=== PATIENT | male | born 1945 | race Caucasian/White ===

== ENCOUNTER 2021-07-11 07:47 | Day surgery (SDC) | payer MEDICARE, OTHER, SELFPAY ==
--- NOTE | 2021-07-10 10:37 | HO.ANESPROP2 ---
Documented by User: Leilani Li NP 07/10/21 10:37 HPI - Anesthesia Eval Consult details Narrative: 76yo M for Upper Endoscopy with Balloon Dilitation [facility] Past Medical History Medical History (Updated 07/11/21 @ 09:39 by Peyton Thompson MD) CKD (chronic kidney disease) Dysphagia Elevated cholesterol HTN (hypertension) Surgical History Surgical History History of esophagogastroduodenoscopy (EGD) Hx of colonoscopy Social History Social History Patient Tobacco Use Status: Former Tobacco user Use of substances other than those prescribed or required for medical reasons: No Are you DNR?: No Advance Directives: No Advance Directives Information Provided: Yes Recently lost weight without trying: No Nutrition Risks: No Nutritional Risk Meds Allergies Allergy/AdvReac Type Severity Reaction Status Date / Time Penicillins Allergy Unknown Verified 07/05/21 14:06 Home Medications Medication Instructions Recorded Confirmed Last Taken Type Probiotic 07/05/21 Unknown History ascorbic acid (vitamin C) 500 mg 500 mg PO DAILY 07/05/21 07/05/21 Unknown History capsule,extended release (Vitamin C) aspirin 81 mg tablet,delayed 81 mg PO DAILY 07/05/21 07/05/21 Unknown History release atorvastatin 20 mg tablet 1 tab PO DAILY 07/05/21 07/05/21 Unknown History famotidine 20 mg tablet 1 tab PO BID 07/05/21 07/05/21 Unknown History lisinopril 2.5 mg tablet 1 tab PO DAILY 07/05/21 07/05/21 Unknown History Exam Exam Date and Time: July 10, 2021 1037 Assessment and Plan Assessment Anesthesia Assessment: Chart Reviewed Documented by User: Peyton Thompson MD 07/11/21 09:41 [facility] Past Medical History Medical History (Updated 07/11/21 @ 09:39 by Peyton Thompson MD) CKD (chronic kidney disease) Dysphagia Elevated cholesterol HTN (hypertension) Family History Family history of problems with anesthesia: No Surgical History Surgical History History of esophagogastroduodenoscopy (EGD) Hx of colonoscopy History of Problems with Anesthesia: No Social History Social History Patient Tobacco Use Status: Former Tobacco user Use of substances other than those prescribed or required for medical reasons: No Are you DNR?: No Advance Directives: No Advance Directives Information Provided: Yes Recently lost weight without trying: No Nutrition Risks: No Nutritional Risk Meds Allergies Allergy/AdvReac Type Severity Reaction Status Date / Time Penicillins Allergy Unknown Verified 07/05/21 14:06 Home Medications Medication Instructions Recorded Confirmed Last Taken Type Probiotic 07/05/21 Unknown History ascorbic acid (vitamin C) 500 mg 500 mg PO DAILY 07/05/21 07/05/21 Unknown History capsule,extended release (Vitamin C) aspirin 81 mg tablet,delayed 81 mg PO DAILY 07/05/21 07/05/21 Unknown History release atorvastatin 20 mg tablet 1 tab PO DAILY 07/05/21 07/05/21 Unknown History famotidine 20 mg tablet 1 tab PO BID 07/05/21 07/05/21 Unknown History lisinopril 2.5 mg tablet 1 tab PO DAILY 07/05/21 07/05/21 Unknown History Exam Height,Weight and Vital Signs: Height 5 ft 8 in Weight 74.843 kg Vital Signs Temp Pulse Resp BP Pulse Ox 97.1 F 58 16 121/70 97 07/11/21 08:00 07/11/21 08:00 07/11/21 08:00 07/11/21 08:00 07/11/21 08:00 Airway Mallampati Class: II TM Dist: >3cm Neck ROM: Full Partial: Upper Loose/Missing/Broken Teeth: Yes (Many missing bottom) Heart: RRR Lungs: CTAB Assessment and Plan Assessment Anesthesia Assessment: Anesthesia Plan Discussed Final Anesthetic Review Family History of Problems with Anesthesia: No History of Problems with Anesthesia: No NPO: Yes ASA Class: III Final Preanesthetic Review: No Changes in Pt Med Stat, Meds/Allgs Chart Reviewed, Consent Obtained/Reviewed and Anes Risks/Benef Reviewed Patient Risk: Low Procedure Risk: Low Assessment/Block/Sedation in SS: Assess/Block/Sedation-SS Anesthetic Plan Anesthetic Plan: MAC: Disposition: Standard PACU
[2021-07-11 07:58] VITALS: BMI 25.0
[2021-07-11 08:00] VITALS: BP 121/70; PULSE 58; RESP 16; TEMP 36.2; O2SAT 97
[2021-07-11] MEDS: Lactated Ringers 1,000 ML 100 ML IVCONT (08:15)
--- NOTE | 2021-07-11 09:36 | PM.OP ---
Brief Operative Note Date of Service: 07/11/21 Pre-op diagnosis: dysphagia, schatzki ring Post-op diagnosis: same Procedure: egd Surgeon: Mumtaz Chisholm Anesthesia: MAC Was an Senior Animator used for this Procedure?: No Estimated blood loss (mL): 5 Pathology: other (bxs egj) Condition: stable Disposition: PACU
[2021-07-11 09:40] VITALS: BP 91/49; PULSE 54; RESP 24; TEMP 36; O2SAT 95
--- NOTE | 2021-07-11 09:49 | MHC.SHP ---
Pre-Procedural Eval Section A Date of Service: 07/11/21 Section B Chief Complaint: dysphagia,reflux disease Details of Present Illness: see h and p no changes Relevant Family History (Specify if Yes): No Relevant Social History: None Present Medications: see Short Stay Collaborative assessment Medical History: No relevant PMH Allergies: Allergies Allergy/AdvReac Type Severity Reaction Status Date / Time Penicillins Allergy Unknown Verified 07/05/21 14:06 Review of Systems Sugical H&P ROS: Negative: Constitution, Cardiovascular, Respiratory, Neurological, Psychiatric, Hem-Onc, Allergic/Immunologic, Gastrointestinal, Genitourinary, Musculoskeletal, Integumentary, Endocrine and Eyes/Ears/Nose/Throat Exam Surgical H&P Exam: Normal: HEENT, Normal: Heart, Normal: Lungs, Normal: Extremities, Normal: Abdomen, Normal: Skin and Normal: Neurological Plan Diagnosis/Plan: Unchanged I have reviewed the history and physical and performed a pertinent physical examination on my patient. No changes have occurred unless specified.
[2021-07-11 09:54] VITALS: BP 99/66; PULSE 50; RESP 20; TEMP 36.3; O2SAT 97
--- NOTE | 2021-07-11 21:02 | OP_ITS ---
SURGEON: Mumtaz Chisholm MD INDICATIONS: Dysphagia and history of Schatzki ring. PREOPERATIVE DIAGNOSIS: POSTOPERATIVE DIAGNOSIS: PROCEDURE PERFORMED: ESTIMATED BLOOD LOSS: COMPLICATIONS: ANESTHESIA: ASSISTANTS: SPECIMENS: PROCEDURES: Upper endoscopy with balloon dilation and biopsy. MEDICATIONS: Monitored anesthesia care. PROCEDURE DESCRIPTION: The history and physical were performed. The risks and benefits of the procedure were explained to the patient. Informed consent was obtained. The patient was placed in the left lateral decubitus position. The Olympus video gastroscope was introduced into the esophagus, stomach, and duodenum. Examination was performed and the scope was removed. He tolerated the procedure well and was taken to recovery area in stable condition. FINDINGS: Esophagus: There was a nonobstructive Schatzki ring. The scope easily passed through this. There was some mild associated esophagitis. Stomach: The stomach was normal. Duodenum: The bulb and second portion were normal. Balloon dilation of the Schatzki ring was performed to 18 and 19 mm with a through the scope balloon, inflated to its recommended pressures for 60 seconds and then removed. The ring was widely patent at the termination of the procedure. Biopsies were obtained from the EG junction. IMPRESSION: 1. Schatzki ring. 2. Esophagitis. 3. Dysphagia. RECOMMENDATIONS: Follow up the biopsy results. MD MAGED Shrestha/HELENA / [id number]
== END 2021-07-11 10:24 | disposition home or self-care (01) ==
PROVIDERS: PCP Internal Medicine; Visit Provider Internal Medicine Gastroenterology
PROC: (CPT 43249; principal; 2021-07-11 09:00)
DX: K22.2 Esophageal obstruction (principal); K20.80 Other esophagitis without bleeding; K21.9 Gastro-esophageal reflux disease without esophagitis; I12.9 Hypertensive chronic kidney disease with stage 1 through stage 4 chronic kidney disease, or unspecified chronic kidney disease; N18.9 Chronic kidney disease, unspecified; E78.00 Pure hypercholesterolemia, unspecified; Z79.82 Long term (current) use of aspirin; Z79.899 Other long term (current) drug therapy; Z88.0 Allergy status to penicillin; Z87.891 Personal history of nicotine dependence
CPT/HCPCS: 43249; 43239; 88305; C1726

== ENCOUNTER 2024-07-14 08:57 | Day surgery (SDC) | payer MEDICARE, OTHER, SELFPAY ==
--- OUTSIDE RECORDS SUMMARY | 2024-07-01 16:18 | XMS_ITS | Encounter Summary ---
Author Organization [facility] Address [address] [facility] [address] [place] [address] Phone Care Team Providers Care Basket Hand Braider Name Role Phone Unavailable Primary Care Provider Unavailabl e Reason for Visit * Reason Comments Med Refill Encounter Details Date Type Department Care Team (Late st Contact Info) Description 12/11/2023 Refill [facility] [address] [place] [address] [place] [address] Ross Bauer MD [address] [facility] [address] [place] [phone] Chronic kidney disease stage 3 (HCC) Social History Tobacco Use Types Packs/Day Years Used Date Smoking Tobacco: Never Assessed Sex and Gender Information Value Date Recorded Sex Assigned at Not on file Legal Sex Male 4:50 PM EST Gender Identity Not on file Sexual Orientation Not on file documented as of this encounter Plan of Treatment Not on file documented as of this encounter Visit Diagnoses Diagnosis Chronic kidney disease stage 3 (HCC) documented in this encounter
--- OUTSIDE RECORDS SUMMARY | 2024-07-01 16:18 | XMS_ITS ---
Author Organization [facility] Address [address] [place] [phone] Care Team Providers Care Five Roll Refiner Batch Mixer Name Role Phone David Puga Primary Care Provider Mumtaz Guzman Jr Unavailable Allergies Allergen (clinical drug ingredient) Drug/Non Drug Allergy documented on EMR Reaction Allergy Type Onset Date Status Penicillin Unknown Drug Allergy Active REASON FOR VISIT Patient presents today for dysphagia Medications Medication SIG (Take, Route, Frequency, Duration) Notes Start Date End Date Status Lisinopril 5 MG TAKE 1 TABLET BY REYMUNDO TH 1 TIME EACH DAY. Orally Once a day Active Atorvastatin Calcium 20 MG TAKE 1 TABLET BY MOUTH EVERY DAY Oral for 90 Active Aspir-81 Active Social History Tobacco Use: Social History Observation Description Date Details (start date - stop date) Former Smoker NA - NA Tobacco Use/Smoking Question Answer Notes Patient is a former smoker How long has it been since you last smoked? > 10 years Alcohol Screen Question Answer Notes Did you have a drink contain ing alcohol in the past year? Yes How often did you have a dri nk containing alcohol in the past year? 4 or more times a week (4 points) How many drinks did you have on a typical day when you were drinking in the past year? 1 or 2 drinks (0 point) How often did you have 6 or more drinks on one occasion in the past year? Never (0 point) Points 4 Interpretation Positive Section Notes: tobacco use over 45 years ag o Problems Problem Type SNOMED Code ICD Code Onset Dates Problem Status W/U Status Risk Notes Problem Schatzki's ring (47007748) Schatzki's ring (K22.2) Active confirmed Vital Signs Temperature 97.7 degrees Fahrenheit 07/02/19 25 Blood pressure systolic 001 mm Hg 07/02/19 25 Blood pressure diastolic 01 mm Hg 025 Height 67 in 07/01/2024 Weight 172 lbs 07/01/2024 BMI 26.94 kg/m2 07/01/2024 Encounters Encounter Location Date Provider Diagnosis [facility] [address] [place] [address] 07/01/2024 Mumtaz Chisholm Jr Dysphagia R13.10 and Schatzki's ring K22.2 Assessments Encounter Date Diagnosis (ICD Code) Assessment Notes Treatment Notes Treatment Clinical Notes Section Notes 07/01/2024 Dysphagia (ICD-10 - R13.10) 07/01/2024 Schatzki's ring (ICD-10 - K22.2) Plan Of Treatment Future Test Test Name Order Date UPPER GI ENDOSCOPY BALLOOON DILATION OF ESOPH 07/01/2024 Next Appt Details Provider Name:Mumtaz jurado Jr, 07/14/2024 11:50:00 AM, [address] [place] [address] , [place], [place], [phone], Progress Notes * GURVINDER BROWN DDOB:1945 (79 yo M)Acc No.[id number]:07/01/2024 Progress Notes Patient:?GURVINDER BROWN Provider:?Mumtaz Chisholm MD :1945???Age:79 Y???Sex:Male Nathen e:07/01/2024 Address:[address] [place] [address] Pcp:David Puga Subjective: * Chief Complaints: * ???1. Patient presents today for dysphagia. * Medical History:?Chronic kid taye disease, Hypertension, Elevated cholesterol, Colonoscopy 09/22 normal. * Family History:?Father: dece ased, gerd.?Mother: .? no known hx of colon cancer polyps or IBS cousin esophageal cancer.? No family history of liver cancer. * Social History:?Tobacco Use:?Tobacco Use/Smoking?Patient is a?former smoker,?How long has it been since you last smoked??> 10 years.?Drugs/Alcohol:?Alcohol Screen?Did you have a drink containing alcohol in the past year??Yes,?How often did you have a drink containing alcohol in the past year??4 or more times a week (4 points),?How many drinks did you have on a typical day when you were drinking in the past year??1 or 2 drinks (0 point),?How often did you have 6 or more drinks on one occasion in the past year??Never (0 point),?Points?4,?Interpretation?Positive.?Miscellaneous:?Marital status: . Occupation: retired. ???tobacco use over 45 years ago. * Medications:?Taking Aspir-81 , Taking Atorvastatin Calcium 20 MG Tablet TAKE 1 TABLET BY MOUTH EVERY DAY Oral , Taking Lisinopril 5 MG Tablet TAKE 1 TABLET BY MOUTH 1 TIME EACH DAY. Orally Once a day , Discontinued Probiotic 250 MG Capsule as directed Orally every other day , Discontinued Vitamin C 500 MG Capsule as directed Orally , Discontinued Famotidine 20 MG Tablet TAKE 1 TABLET BY MOUTH TWICE A DAY FOR 30 DAYS , Medication List reviewed and reconciled with the patient * Allergies:?Penicillin. Objective: * Vitals:?Wt:172lbs, Ht: 67 in , BMI:26.94Index, BP:001/01mm Hg, Temp:97.7, Wt-k.02. Assessment: * Assessment: 1.?Dysphagia - R13.10 (Prima ry)???2.?Schatzki's ring - K22.2??? Plan: * Treatment: * Preventive Medicine:? ??Counseling:?Care goal follow-up plan:?Above Normal BMI Follow-up?Dietary management education, guidance, and counseling,?BMI management provided?Yes.? ??Screenings:?Fall Risk Screening?Fall Risk Assessment:?No falls in the past year,?Screening:?No falls in the past year,?Assessment:?Not performed, no reason specified,?Plan of Care:?Not documented, no reason specified.? * * The named appointment provid er may or may not be the originator of this progress note, and it is not deemed complete until electronically signed by the appointment provider. Sign off status: Pending * Provider:?Mumtaz Chisholm MD Date:?0 07/01/2024 Generated for Soumya west/Mehnaz/Nathan on:?07/01/2024 04:18 PM EDT
--- OUTSIDE RECORDS SUMMARY | 2024-07-01 16:18 | XMS_ITS | Clinical Summary ---
Author Organization [facility] Address [address] [facility] [address] [place] [address] [place] [id number] Care Team Providers Care Field Interviewer Name Role Phone Unavailable Primary Care Provider Unavailabl e Medications atorvastatin (LIPITOR) 20 MG tablet 10/08/2020 Active lisinopril 2.5 MG tabletIndication s:Chronic kidney disease stage 3 (HCC) TAKE 1 TABLET BY MOUTH 1 TIME EACH DAY. 90 tablet 3 03/12/2023 Active Active Problems Problem Noted Date Diagnosed Date Chronic kidney disease stage 3 12/29/2020 Acute nontraumatic kidney injury 12/29/2020 Social History Tobacco Use Types Packs/Day Years Used Date Smoking Tobacco: Never Assessed Sex and Gender Information Value Date Recorded Sex Assigned at Not on file Legal Sex Male 4:50 PM EST Gender Identity Not on file Sexual Orientation Not on file Plan of Treatment Health Maintenance Due Date Last Done Comments Pneumococcal Vaccine: 50+ Ye ars (2 of 2 - PPSV23) 12/02/2014 10/07/2014 Influenza Vaccine (Season Ended) 2024 Pneumococcal Vaccine: Peds ( 0 to 5 Years) and At-Risk Patients (6 to 49 Years) Discontinued 10/07/2014 Hepatitis B Vaccine Aged Out No longe r eligible based on patient's age to complete this topic Insurance [employer] [address] [place] [address] Medicare
--- OUTSIDE RECORDS SUMMARY | 2024-07-01 16:19 | XMS_ITS | Patient Health Record ---
Author Organization [facility] Address [address] [place] [address] Care Team Providers Care Director Alumni Relations Name Role Phone David Puga Primary Care Provider Mumtaz Guzman Jr Unavailable Allergies Allergen (clinical drug ingredient) Drug/Non Drug Allergy documented on EMR Reaction Allergy Type Onset Date Status Penicillin Unknown Drug Allergy Active Reason For Referral No Information Medications Medication SIG (Take, Route, Frequency, Duration) Notes Start Date End Date Status Lisinopril 5 MG TAKE 1 TABLET BY REYMUNDO TH 1 TIME EACH DAY. Orally Once a day Active Atorvastatin Calcium 20 MG TAKE 1 TABLET BY MOUTH EVERY DAY Oral for 90 Active Aspir-81 Active Immunizations Vaccine Route Administration Date Status Comme nts Influenza Unknown 11/09/2020 Administered Influenza Unknown 11/26/2023 Administered Social History Tobacco Use: Social History Observation [...] tobacco use over 45 years ag o tobacco use over 45 years ag o Problems Problem Type SNOMED Code ICD Code Onset Dates Problem Status W/U Status Risk Notes Problem [id number] Other dysphagia (R13.19) Active confirmed Problem Dysphagia (39695865) Dysphagia (R13.10) Active confirmed Problem 070161479 Gastroesophageal reflux disease without esophagitis (K21.9) Active confirmed Problem Esophageal reflux finding (621500939) Gastroesophageal reflux (K21.9) Active confirmed Problem Schatzki's ring (35593041) Schatzki's ring (K22.2) Active confirmed Vital Signs Temperature 97.7 degrees Fahrenheit 07/01/2024 Blood pressure diastolic 01 mm Hg 07/01/2024 Height 67 in 07/01/2024 Blood pressure systolic 001 mm Hg 07/01/2024 Weight 172 lbs 07/01/2024 BMI 26.94 kg/m2 07/01/2024 Encounters Encounter Location Date Provider Diagnosis [facility] [address] [facility] [address] [place] [address] 07/01/2024 Mumtaz Chihsolm Jr Dysphagia R13.10 and Schatzki's ring K22.2 Assessments Encounter Date Diagnosis (ICD Code) Assessment Notes Treatment Notes Treatment Clinical Notes Section Notes 07/01/2024 Dysphagia (ICD-10 - R13.10) 07/01/2024 Schatzki's ring (ICD-10 - K22.2) Plan Of Treatment Future Test Test Name Order Date UPPER GI ENDOSCOPY BALLOOON DILATION OF ESOPH 06/01/2021 UPPER GI ENDOSCOPY BALLOOON DILATION OF ESOPH 07/01/2024 Next Appt Details Provider Name:Mumtaz jurado Jr, 07/14/2024 11:50:00 AM, [address] [facility] , [place], [place], [phone], Insurance Providers Payer Name Payer Address Payer Phone Subscriber Number Group Number Insured Name Patient Relationship to Insured Coverage Start Date Coverage End Date MEDICARE OF [place] [address] [facility], [place] [id number] GURVINDER BROWN Self - patient is the insured [employer] [facility] [employer] [address] [place] [address] [id number] GURVINDER BROWN Self - patient is the insured Medical (General) History Medical History History ICD Code Chronic kidney disease Hypertension Elevated cholesterol Colonoscopy 09/22 normal Surgical History Surgery Date(Month/Year)
[2024-07-10 11:11] VITALS: BMI 26.9
[2024-07-10 11:18] VITALS: BMI 26.9
--- NOTE | 2024-07-13 09:37 | HO.ANESPROP2 ---
Documented by User: Leilani Li NP 07/13/24 09:39 HPI - Anesthesia Eval Consult details Narrative: 79yo M for Upper Endoscopy and Colonoscopy [facility] Active Problems Active Problems: All Active Problems Dysphagia (Acute) Past Medical History Medical History Arthritis GERD (gastroesophageal reflux disease) Schatzki's ring Dysphagia Elevated cholesterol HTN (hypertension) CKD (chronic kidney disease) Family History Family history of problems with anesthesia: No Surgical History Surgical History History of esophagogastroduodenoscopy (EGD) Hx of colonoscopy History of Problems with Anesthesia: No Social History Social History Patient Tobacco Use Status: Former Tobacco user Tobacco use type: Cigarette Use of substances other than those prescribed or required for medical reasons: No Have you been hit, kicked, punched, or otherwise hurt by someone within the past year? If so, by whom?: No Spiritual Healthcare Practices: no Orthodoxy Healthcare Practices: no Cultural Healthcare Practices: no Advance Directives Information Provided: Yes (as above noted) Advance Directives on File: No Meds Allergies Allergy/AdvReac Type Severity Reaction Status Date / Time Penicillins Allergy Unknown Verified 07/14/24 09:28 Home Medications ?Medication ?Instructions ?Recorded ?Confirmed ?Last Taken ?Type aspirin 81 mg tablet,delayed 81 mg PO DAILY 07/05/21 07/10/24 07/08/24 History release atorvastatin 20 mg tablet 1 tab PO DAILY 07/05/21 07/10/24 07/14/24 08:00 History lisinopril 2.5 mg tablet 1 tab PO DAILY 07/05/21 07/10/24 Unknown History Exam Height,Weight and Vital Signs: Height 5 ft 7 in Weight 78.018 kg Assessment and Plan Assessment Anesthesia Assessment: Chart Reviewed Final Anesthetic Review Family History of Problems with Anesthesia: No History of Problems with Anesthesia: No Documented by User: Zoran Huffman MD 07/14/24 11:49 PMFSH Past Medical History Medical History Arthritis GERD (gastroesophageal reflux disease) Schatzki's ring Dysphagia Elevated cholesterol HTN (hypertension) CKD (chronic kidney disease) Surgical History Surgical History History of esophagogastroduodenoscopy (EGD) Hx of colonoscopy Social History Social History Patient Tobacco Use Status: Former Tobacco user Tobacco use type: Cigarette Use of substances other than those prescribed or required for medical reasons: No Have you been hit, kicked, punched, or otherwise hurt by someone within the past year? If so, by whom?: No Spiritual Healthcare Practices: no Orthodoxy Healthcare Practices: no Cultural Healthcare Practices: no Advance Directives Information Provided: Yes (as above noted) Advance Directives on File: No Meds Allergies Allergy/AdvReac Type Severity Reaction Status Date / Time Penicillins Allergy Unknown Verified 07/14/24 09:28 Home Medications ?Medication ?Instructions ?Recorded ?Confirmed ?Last Taken ?Type aspirin 81 mg tablet,delayed 81 mg PO DAILY 07/05/21 07/10/24 07/08/24 History release atorvastatin 20 mg tablet 1 tab PO DAILY 07/05/21 07/10/24 07/14/24 08:00 History lisinopril 2.5 mg tablet 1 tab PO DAILY 07/05/21 07/10/24 Unknown History Exam Airway Mallampati Class: II TM Dist: >3cm Neck ROM: Full Denture: Upper Loose/Missing/Broken Teeth: Yes Assessment and Plan Assessment Anesthesia Assessment: Anesthesia Plan Discussed Final Anesthetic Review NPO: Yes ASA Class: III Final Preanesthetic Review: No Changes in Pt Med Stat, Meds/Allgs Chart Reviewed, Consent Obtained/Reviewed and Anes Risks/Benef Reviewed Patient Risk: Intermediate Procedure Risk: Low Anesthetic Plan Anesthetic Plan: MAC: Disposition: Standard PACU
[2024-07-14 09:36] VITALS: BP 129/76; PULSE 66; RESP 15; TEMP 36.3; O2SAT 97
[2024-07-14] MEDS: Lactated Ringers 1,000 ML 100 ML IVCONT (09:46)
--- NOTE | 2024-07-14 11:03 | MHC.SHP ---
Pre-Procedural Eval Section A - 24 Hr Update-Section A only Date of Service: 07/14/24 The patient is an INPATIENT: No Changes since office visit: No Cold of Flu in the past 2 weeks, No New Medical Problems, No Changes in Medication and No Patient answered all questions The patient has been examined within 24 hours of the surgical procedure. The History & Physical has been completed within 30 days and I have reviewed it.: Yes Section B - Complete if H&P > 30 days Chief Complaint: Esophageal obstruction,dysphagia Allergies: Allergies Allergy/AdvReac Type Severity Reaction Status Date / Time Penicillins Allergy Unknown Verified 07/14/24 09:28 Plan I have reviewed the history and physical and performed a pertinent physical examination on my patient. No changes have occurred unless specified. Time Spent With Patient Time: Total time managing care of this patient today ____ minutes.
[2024-07-14 11:40] VITALS: BP 90/53; PULSE 70; RESP 18; TEMP 36.1; O2SAT 95
--- NOTE | 2024-07-14 11:49 | OP_ITS ---
DATE OF SERVICE: 07/14/2024 SURGEON: Mumtaz Chisholm MD INDICATIONS: Schatzki ring and dysphagia. PREOPERATIVE DIAGNOSIS: POSTOPERATIVE DIAGNOSIS: PROCEDURE PERFORMED: Upper endoscopy with balloon dilation and biopsy. ESTIMATED BLOOD LOSS: COMPLICATIONS: ANESTHESIA: Monitored anesthesia care. ASSISTANTS: SPECIMENS: DESCRIPTION OF PROCEDURE: A history and physical was performed. The risks and benefits of the procedure were explained to the patient and informed consent was obtained. The patient was placed in the left lateral decubitus position. The Olympus video gastroscope was introduced into the esophagus, stomach, and duodenum. Examination was performed and the scope was removed. He tolerated the procedure well and was returned to recovery area in stable condition. FINDINGS: Esophagus: There was a nonobstructive Schatzki ring at 40 cm from the bite block. This showed an irregular EG junction as well. There were no masses or esophagitis. There was a 5 cm hiatal hernia. Stomach: The stomach showed no evidence of masses, ulcers, or polyps. Duodenum: The bulb showed mild duodenitis, 2nd portion was normal. Balloon dilation of the Schatzki ring to 19 mm was performed with the scope. Both the balloon passed through the scope, inflated to its recommended pressure for 60 seconds and then removed. There was superficial mucosal laceration of the ring consistent with an effective dilation. Biopsies were then obtained from the EG junction. IMPRESSION: 1. Schatzki ring. 2. So esophagus. 3. Hiatal hernia. RECOMMENDATION: Follow up the biopsy results. Start omeprazole 20 mg daily. MD MAGED Shrestha/MODL / [id number] MTDD
[2024-07-14 11:55] VITALS: BP 96/61; PULSE 53; RESP 16; TEMP 36.3; O2SAT 96
== END 2024-07-14 12:16 | disposition home or self-care (01) ==
PROVIDERS: PCP Internal Medicine; Visit Provider Internal Medicine Gastroenterology
PROC: (CPT 43249; principal; 2024-07-14 11:00)
DX: K22.2 Esophageal obstruction (principal); R13.10 Dysphagia, unspecified; K22.10 Ulcer of esophagus without bleeding; K44.9 Diaphragmatic hernia without obstruction or gangrene; K29.80 Duodenitis without bleeding; E78.00 Pure hypercholesterolemia, unspecified; I12.9 Hypertensive chronic kidney disease with stage 1 through stage 4 chronic kidney disease, or unspecified chronic kidney disease; N18.9 Chronic kidney disease, unspecified; Z79.899 Other long term (current) drug therapy; Z79.82 Long term (current) use of aspirin; Z88.0 Allergy status to penicillin; Z87.891 Personal history of nicotine dependence
CPT/HCPCS: 43249; 43239; 88305; 88312; 88313; C1726; J2003; J2704